=== PATIENT | female | born 1975 | race African-American/Black ===

== ENCOUNTER 2022-02-10 11:04 | Emergency (ER) | payer BC, OTHER ==
[2022-02-10 12:34] LABS: #Basophils 0.1 10x3/uL (0.0-0.2); #Eosinphils 0.1 10x3/uL (0.0-0.5); #Monocytes 0.5 10x3/uL (0.0-1.1); #Neutrophils 4.8 10x3/uL (1.5-8.4); %Basophils 0.7 % (0.0-2.0); %Eosinophils 1.9 % (0.0-6.0); %Neutrophils 72.1 % (40.0-75.0); Hemoglobin 9.9 g/dL (12.0-15.5); Mean Corpuscular HGB CONC 33.1 g/dL (32.0-36.0); Mean Corpuscular Hemoglobin 26.8 pg (27.0-33.0); Mean Platelet Volume 10.4 fl (7.4-10.4); Platelet Count 370 10x3/uL (150-450); RBC Distribution Width 14.6 % (11.5-14.5); Red Blood Cell (RBC) Count 3.69 10x6/uL (3.90-5.03); White Blood Cell (WBC) Count 6.7 10x3/uL (3.5-10.5)
[2022-02-10 12:43] LABS: ALT (SGPT) 23 U/L (8-55); AST (SGOT) 6 U/L (5-34); Albumin 3.5 g/dL (3.5-5.0); Alkaline Phosphatase 149 U/L (40-110); Anion Gap 16 mmol/L (10-20); BUN (Urea Nitrogen) 28 mg/dL (7.0-18.7); Bilirubin, Total 0.5 mg/dL (0.2-1.2); Calc. Creatinine Clearance 0 mL/min (70-130); Calcium 9.3 mg/dL (7.8-10.44); Carbon Dioxide 24 mmol/L (22-29); Chloride 101 mmol/L (98-107); Estimated GFR 45; Lipase 8 U/L (8-78); Protein, Total 7.5 g/dL (6.0-8.3); Sodium 137 mmol/L (136-145)
[2022-02-10 12:48] LABS: SARS-CoV-2 NAA Rapid Test Not Detected (NotDetected)
[2022-02-10 12:48] LABS: Magnesium 1.6 mg/dL (1.6-2.6); Phosphorus 4.3 mg/dL (2.3-4.7)
[2022-02-10] MEDS ORDERED: diphenhydrAMINE 50 MG/ML VIAL ONE (12:51)
[2022-02-10] MEDS ORDERED: methylPREDNISolone Sod Succ 40 MG VIAL ONE (12:51)
[2022-02-10] MEDS ORDERED: Famotidine/PF 20 mg/2ml Vial ONE (12:51)
[2022-02-10 12:52] LABS: BHCG - Serum Negative (NEGATIVE); Pregs Control Background? CLEAR/WHITE (CLR/WHITE); Pregs Control Bar Appear? YES (CONTROL BAR)
[2022-02-10 12:54] LABS: Glucose 648 mg/dL (70-105)
[2022-02-10] MEDS ORDERED: Morphine 2 MG/ML VIAL ONE (13:12)
[2022-02-10] MEDS ORDERED: Cefepime 2 GM VIAL ONE (13:13)
[2022-02-10 13:48] LABS: Actual Bicarbonate (HCO3v) 28 mEq/L (22-28); Base Excess 4.5 mEq/L (-2.0 to +3.0); Chloride (VBG) 101 mmol/L (98-106); Hemoglobin (Hb) 11.6 g/dL (11.7-16.0); Potassium (VBG) 4.15 mmol/L (3.70-5.30); Puncture Site Other Site; Sodium 138.1 mmol/L (133-146); Temperature 36.9 C
[2022-02-10] MEDS ORDERED: Insulin Regular 300 UNITS/3 ML VIAL ONE (14:46)
[2022-02-10] MEDS ORDERED: HYDROcodone/Acetaminophen 5/325 mg Tablet ONE (16:25)
[2022-02-10] MEDS ORDERED: Promethazine HCl 25 MG/ML VIAL ONE (16:25)
[2022-02-10 17:59] LABS: Bilirubin Neg (Negative); Blood, Urine 50 (Negative); Clarity Slightly Cloudy (Clear); Glucose, Urine (Dipstick) >=1000 mg/dL (Negative); Ketone, Urine Negative (Negative); Leukocyte 500 (Negative); Nitrite Negative (Negative); Protein, Urine (Dipstick) 500 mg/dl (Neg-Trace); Urobilinogen Normal mg/dL (Less than 2)
[2022-02-10 18:07] LABS: WBC/HPF Greater Than 50 HPF (0-3)
[2022-02-10 18:08] LABS: Bacteria/HPF Rare-Few HPF (None Seen); Squamous Epithelial 0-3 HPF (0-3); Yeast-Budding Rare HPF (None Seen)
[2022-02-10 18:09] LABS: Yeast-Hyphae 1+ HPF (None Seen)
== END 2022-02-10 17:39 | disposition home or self-care (01) ==
LOC: CSHERS 11:04
DX: E11.65 Type 2 diabetes mellitus with hyperglycemia (principal); N17.9 Acute kidney failure, unspecified; D64.9 Anemia, unspecified; M79.672 Pain in left foot; I10 Essential (primary) hypertension; F17.210 Nicotine dependence, cigarettes, uncomplicated; Z20.822 Contact with and (suspected) exposure to COVID-19
CPT/HCPCS: 36415; 36416; 36600; 71045; 74177; 80053; 81003; 81015; 82010; 82805; 83605; 83690; 83735; 83880; 84100; 84484; 84703; 85025; 85652; 86140; 87040; 87086; 93005; 94760; 99283; J0692; J1200; J1815; J2270; J2550; J2920; J3370; S0028

== ENCOUNTER 2022-03-02 13:28 | Emergency (ER) | payer BC, OTHER ==
[2022-03-02 14:45] LABS: SARS-CoV-2 NAA Rapid Test DETECTED (NotDetected)
== END 2022-03-02 16:09 | disposition left against medical advice (07) ==
LOC: CSHERS 13:28
DX: U07.1 COVID-19 (principal); Z53.21 Procedure and treatment not carried out due to patient leaving prior to being seen by health care provider

== ENCOUNTER 2022-03-03 12:26 | Emergency (ER) | payer BC, OTHER | END 2022-03-03 13:27 | disposition home or self-care (01) | LOC: CSHERS 12:26 | DX: U07.1 COVID-19 (principal); E11.9 Type 2 diabetes mellitus without complications | CPT/HCPCS: 36416; 99281 ==

== ENCOUNTER 2022-10-25 09:33 | Inpatient (IN) | payer OTHER ==
[2022-10-25 10:25] LABS: Actual Bicarbonate (HCO3v) 19.3 mEq/L (22-28); Base Excess -6.9 mEq/L (-2 - +2); Calcium, Ionized (venous) 1.13 mmol/L (1.16-1.32); Chloride (VBG) 103 mmol/L (98-106); Hematocrit-VBG 37 % (36.0-47.0); Hemoglobin (Hb) 12.6 g/dL (11.7-16.0); Potassium (VBG) 4.94 mmol/L (3.70-5.30); Puncture Site Other Site; RapidComm Collect By lab; Sodium 134.1 mmol/L (133-146); pH (venous) 7.291 (7.32-7.43)
[2022-10-25] MEDS ORDERED: Ketorolac Tromethamine 30 MG/ML VIAL ONE (10:40)
[2022-10-25] MEDS ORDERED: Promethazine 25 MG TAB ONE (10:40)
[2022-10-25 10:44] LABS: #Basophils 0.1 10x3/uL (0.0-0.2); #Eosinphils 0.1 10x3/uL (0.0-0.5); #Monocytes 0.3 10x3/uL (0.0-1.1); #Neutrophils 5.8 10x3/uL (1.5-8.4); %Basophils 0.7 % (0.0-2.0); %Eosinophils 1.7 % (0.0-6.0); %Lymphocytes 12.4 % (18.0-47.0); %Monocytes 4.5 % (0.0-10.0); %Neutrophils 79.9 % (40.0-75.0); Hematocrit 36.5 % (34.9-44.5); Hemoglobin 11.6 g/dL (12.0-15.5); Mean Corpuscular HGB CONC 31.8 g/dL (32.0-36.0); Mean Corpuscular Volume 81.8 fl (81.6-98.3); Mean Platelet Volume 10.1 fl (7.4-10.4); Platelet Count 448 10x3/uL (150-450); RBC Distribution Width 15.2 % (11.5-14.5); Red Blood Cell (RBC) Count 4.46 10x6/uL (3.90-5.03); White Blood Cell (WBC) Count 7.2 10x3/uL (3.5-10.5)
[2022-10-25 10:50] LABS: ALT (SGPT) Less than 7 U/L (8-55); AST (SGOT) 7 U/L (5-34); Alkaline Phosphatase 136 U/L (40-110); Anion Gap 24 mmol/L (10-20); BUN (Urea Nitrogen) 72 mg/dL (7.0-18.7); Bilirubin, Total 0.3 mg/dL (0.2-1.2); Calc. Creatinine Clearance 0 mL/min (70-130); Calcium 9.9 mg/dL (7.8-10.44); Carbon Dioxide 13 mmol/L (22-29); Estimated GFR 15; Globulin 4.5 g/dL (2.4-3.5); Glucose 296 mg/dL (70-105); Lipase 43 U/L (8-78); Magnesium 2.4 mg/dL (1.6-2.6); Protein, Total 8.5 g/dL (6.0-8.3)
[2022-10-25 10:56] LABS: Chloride 102 mmol/L (98-107); Potassium 4.9 mmol/L (3.5-5.1); Sodium 134 mmol/L (136-145)
[2022-10-25] MEDS ORDERED: Promethazine HCl 12.5 MG in Sodium Chloride 0.9% 50 ML IVPB SCH (11:00)
[2022-10-25] MEDS ORDERED: Morphine 4 MG/ML VIAL ONE (11:09)
[2022-10-25 11:26] LABS: Phosphorus 5.5 mg/dL (2.3-4.7)
[2022-10-25] MEDS ORDERED: NS 0.9% w/ 20 MEQ KCL 1,000 ML IV PRN ×2 (12:01)
[2022-10-25] MEDS ORDERED: Electrolyte Replacement Protocol 1 EACH IVPB PRN (12:01)
[2022-10-25] MEDS ORDERED: Sodium Chloride 0.9% 1,000 ML IV PRN ×4 (12:01)
[2022-10-25] MEDS ORDERED: Dextrose 5 %-0.45 % NaCl 1,000 ML IV PRN (12:01)
[2022-10-25] MEDS ORDERED: Insulin Regular 300 UNITS/3 ML VIAL ONE (12:08)
[2022-10-25] MEDS ORDERED: INSULIN REGULAR IN 0.9 % NACL 100 UNITS/100 ML BAG ONE (12:10)
[2022-10-25] MEDS ORDERED: HUMULIN R 100 UNITS in Sodium Chloride 0.9% 99 ML IVPB SCH (12:15)
[2022-10-25 13:26] VITALS: BMI 19.7
[2022-10-25] MEDS: Morphine 2 MG/ML VIAL SLOW IVP PRN ×3 (13:56→22:16)
[2022-10-25] MEDS: cefTRIAXone\\ROCEPHIN 1 GM in Sodium Chloride 0.9% 100 ML IVPB SCH (14:23)
[2022-10-25] MEDS: Dextrose 50% Abboject 50 ML SYRINGE SLOW IVP PRN ×4 (14:30→23:43)
[2022-10-25] MEDS: D5 1/2 NS w/20 mEq KCL 1,000 ML IV PRN ×3 (14:32→23:12)
[2022-10-25] MEDS: Promethazine HCl 12.5 MG in Sodium Chloride 0.9% 50 ML IVPB PRN ×2 (15:20→20:26)
[2022-10-25] MEDS ORDERED: Pantoprazole 40 MG VIAL IVP SCH (16:15)
[2022-10-25 16:50] LABS: Troponin I Less than 0.010 ng/mL (< 0.028)
[2022-10-25 17:30] LABS: Anion Gap 19 mmol/L (10-20); BUN (Urea Nitrogen) 69 mg/dL (7.0-18.7); Calc. Creatinine Clearance 20 mL/min (70-130); Calcium 8.2 mg/dL (7.8-10.44); Carbon Dioxide 12 mmol/L (22-29); Chloride 110 mmol/L (98-107); Estimated GFR 18; Glucose 224 mg/dL (70-105); Potassium 4.7 mmol/L (3.5-5.1); Sodium 136 mmol/L (136-145)
[2022-10-25] MEDS ORDERED: INSULIN REGULAR IN 0.9 % NACL 100 UNITS in Premix Bag 1 BAG IVPB SCH (19:00)
[2022-10-25 19:41] LABS: Anion Gap 18 mmol/L (10-20); BUN (Urea Nitrogen) 65 mg/dL (7.0-18.7); Calc. Creatinine Clearance 21 mL/min (70-130); Calcium 7.9 mg/dL (7.8-10.44); Carbon Dioxide 13 mmol/L (22-29); Chloride 110 mmol/L (98-107); Estimated GFR 18; Glucose 154 mg/dL (70-105); Potassium 4.5 mmol/L (3.5-5.1); Sodium 136 mmol/L (136-145)
[2022-10-26 00:43] LABS: Anion Gap 16 mmol/L (10-20); BUN (Urea Nitrogen) 63 mg/dL (7.0-18.7); Calc. Creatinine Clearance 23 mL/min (70-130); Calcium 8.1 mg/dL (7.8-10.44); Carbon Dioxide 14 mmol/L (22-29); Chloride 110 mmol/L (98-107); Estimated GFR 20; Glucose 158 mg/dL (70-105); Potassium 4.7 mmol/L (3.5-5.1); Sodium 135 mmol/L (136-145)
[2022-10-26] MEDS: Dextrose 50% Abboject 50 ML SYRINGE SLOW IVP PRN (01:28)
[2022-10-26] MEDS: Morphine 2 MG/ML VIAL SLOW IVP PRN ×4 (02:03→21:00)
[2022-10-26] MEDS: Promethazine HCl 12.5 MG in Sodium Chloride 0.9% 50 ML IVPB PRN ×3 (04:23→21:46)
[2022-10-26 04:52] LABS: Anion Gap 16 mmol/L (10-20); BUN (Urea Nitrogen) 61 mg/dL (7.0-18.7); Calc. Creatinine Clearance 23 mL/min (70-130); Calcium 8.3 mg/dL (7.8-10.44); Carbon Dioxide 14 mmol/L (22-29); Chloride 109 mmol/L (98-107); Estimated GFR 21; Glucose 149 mg/dL (70-105); Sodium 134 mmol/L (136-145)
[2022-10-26] MEDS ORDERED: Insulin Regular 300 UNITS/3 ML VIAL SC PRN ×2 (08:50)
[2022-10-26] MEDS ORDERED: Dextrose 50% Abboject 50 ML SYRINGE SLOW IVP PRN (08:50)
[2022-10-26] MEDS ORDERED: Dextrose 5% in Water 1,000 ML IV PRN (08:50)
[2022-10-26] MEDS ORDERED: Glucagon 1 MG/ML KIT IM PRN (08:50)
[2022-10-26] MEDS ORDERED: Calcium Carbonate 500 MG ChewTAB PO PRN (08:54)
[2022-10-26] MEDS: Lantus 1000 UNITS/10 ML VIAL SC SCH (09:31)
[2022-10-26] MEDS: Pantoprazole 40 MG VIAL IVP SCH ×2 (09:32→19:22)
[2022-10-26] MEDS: Polyethylene Glycol 3350 17 GM Packet PO SCH ×2 (09:33→20:51)
[2022-10-26] MEDS: Senokot S 8.6-50 MG TAB PO SCH ×2 (09:33→20:51)
[2022-10-26] MEDS: Sodium Chloride 0.45% 1,000 ML IV SCH ×2 (09:35→17:38)
[2022-10-26 10:11] LABS: Bilirubin Neg (Negative); Blood, Urine 150 (Negative); Clarity Cloudy (Clear); Glucose, Urine (Dipstick) Normal (Negative); Ketone, Urine Negative (Negative); Leukocyte 500 (Negative); Nitrite Negative (Negative); Protein, Urine (Dipstick) 30 mg/dl (Neg-Trace); Urobilinogen Normal mg/dL (Less than 2)
[2022-10-26 10:20] LABS: Bacteria/HPF 2+ HPF (None Seen); Squamous Epithelial 0-3 HPF (0-3); WBC/HPF 21-50 HPF (0-3)
[2022-10-26] MEDS ORDERED: Acetaminophen/Codeine 30-300mg Tablet PO PRN (12:48)
[2022-10-26] MEDS ORDERED: Morphine 2 MG/ML VIAL SLOW IVP PRN (14:36)
[2022-10-26] MEDS: cefTRIAXone\\ROCEPHIN 1 GM in Sodium Chloride 0.9% 100 ML IVPB SCH (14:40)
[2022-10-26] MEDS: Sodium Bicarbonate Tab 325 MG TAB PO SCH ×2 (14:45→20:51)
[2022-10-26] MEDS ORDERED: Morphine 2 MG/ML VIAL SLOW IVP SCH ×2 (17:00→22:15)
[2022-10-26] MEDS ORDERED: Labetalol HCl 100 MG/20 ML VIAL SLOW IVP PRN (17:27)
[2022-10-27] MEDS: Sodium Chloride 0.45% 1,000 ML IV SCH ×3 (01:35→17:40)
[2022-10-27] MEDS: Morphine 2 MG/ML VIAL SLOW IVP PRN ×6 (02:00→22:03)
[2022-10-27] MEDS: Promethazine HCl 12.5 MG in Sodium Chloride 0.9% 50 ML IVPB PRN ×4 (03:47→22:23)
[2022-10-27 04:29] LABS: #Basophils 0.1 10x3/uL (0.0-0.2); #Eosinphils 0.1 10x3/uL (0.0-0.5); #Monocytes 0.5 10x3/uL (0.0-1.1); #Neutrophils 3.9 10x3/uL (1.5-8.4); %Basophils 0.9 % (0.0-2.0); %Eosinophils 2.5 % (0.0-6.0); %Lymphocytes 18.3 % (18.0-47.0); %Monocytes 8.4 % (0.0-10.0); %Neutrophils 69.4 % (40.0-75.0); Hematocrit 27.9 % (34.9-44.5); Hemoglobin 8.7 g/dL (12.0-15.5); Mean Corpuscular HGB CONC 31.2 g/dL (32.0-36.0); Mean Corpuscular Hemoglobin 26.3 pg (27.0-33.0); Mean Corpuscular Volume 84.3 fl (81.6-98.3); Mean Platelet Volume 9.8 fl (7.4-10.4); Platelet Count 356 10x3/uL (150-450); RBC Distribution Width 15.3 % (11.5-14.5); Red Blood Cell (RBC) Count 3.31 10x6/uL (3.90-5.03); White Blood Cell (WBC) Count 5.6 10x3/uL (3.5-10.5)
[2022-10-27 04:54] LABS: Anion Gap 13 mmol/L (10-20); BUN (Urea Nitrogen) 46 mg/dL (7.0-18.7); Calc. Creatinine Clearance 38 mL/min (70-130); Calcium 8.4 mg/dL (7.8-10.44); Carbon Dioxide 16 mmol/L (22-29); Chloride 110 mmol/L (98-107); Estimated GFR 39; Glucose 104 mg/dL (70-105); Potassium 4.2 mmol/L (3.5-5.1); Sodium 135 mmol/L (136-145)
[2022-10-27] MEDS: Pantoprazole 40 MG VIAL IVP SCH ×2 (08:23→22:06)
[2022-10-27] MEDS: Polyethylene Glycol 3350 17 GM Packet PO SCH ×2 (08:55→22:06)
[2022-10-27] MEDS: Senokot S 8.6-50 MG TAB PO SCH ×2 (08:55→23:28)
[2022-10-27] MEDS: Sodium Bicarbonate Tab 325 MG TAB PO SCH ×3 (08:55→22:05)
[2022-10-27] MEDS: Lantus 1000 UNITS/10 ML VIAL SC SCH (10:56)
[2022-10-27] MEDS: cefTRIAXone\\ROCEPHIN 1 GM in Sodium Chloride 0.9% 100 ML IVPB SCH (13:21)
[2022-10-28] MEDS: Sodium Chloride 0.45% 1,000 ML IV SCH (01:38)
[2022-10-28] MEDS: Morphine 2 MG/ML VIAL SLOW IVP PRN (02:13)
[2022-10-28 05:28] LABS: #Basophils 0.1 10x3/uL (0.0-0.2); #Eosinphils 0.1 10x3/uL (0.0-0.5); #Monocytes 0.5 10x3/uL (0.0-1.1); %Eosinophils 2.8 % (0.0-6.0); %Lymphocytes 25.7 % (18.0-47.0); %Monocytes 10.4 % (0.0-10.0); %Neutrophils 59.5 % (40.0-75.0); Hematocrit 27.7 % (34.9-44.5); Hemoglobin 8.9 g/dL (12.0-15.5); Mean Corpuscular HGB CONC 32.1 g/dL (32.0-36.0); Mean Corpuscular Hemoglobin 26.6 pg (27.0-33.0); Mean Corpuscular Volume 82.9 fl (81.6-98.3); Mean Platelet Volume 10.1 fl (7.4-10.4); Platelet Count 342 10x3/uL (150-450); RBC Distribution Width 15.2 % (11.5-14.5); Red Blood Cell (RBC) Count 3.34 10x6/uL (3.90-5.03)
[2022-10-28 05:42] LABS: Anion Gap 16 mmol/L (10-20); BUN (Urea Nitrogen) 34 mg/dL (7.0-18.7); Calc. Creatinine Clearance 49 mL/min (70-130); Calcium 8.8 mg/dL (7.8-10.44); Carbon Dioxide 18 mmol/L (22-29); Chloride 110 mmol/L (98-107); Estimated GFR 47; Glucose 70 mg/dL (70-105); Potassium 4.1 mmol/L (3.5-5.1); Sodium 140 mmol/L (136-145)
[2022-10-28] MEDS: Promethazine HCl 12.5 MG in Sodium Chloride 0.9% 50 ML IVPB PRN ×2 (08:24→15:54)
[2022-10-28] MEDS ORDERED: Sodium Chloride 0.45% 1,000 ML IV SCH (08:47)
[2022-10-28] MEDS ORDERED: Morphine 2 MG/ML VIAL SLOW IVP PRN (10:59)
[2022-10-28] MEDS: Pantoprazole 40 MG VIAL IVP SCH (11:07)
[2022-10-28] MEDS: Sodium Bicarbonate Tab 325 MG TAB PO SCH ×2 (11:08→17:01)
[2022-10-28] MEDS: Polyethylene Glycol 3350 17 GM Packet PO SCH (11:08)
[2022-10-28] MEDS: Senokot S 8.6-50 MG TAB PO SCH (11:09)
[2022-10-28 12:35] VITALS: BP 101/62; TEMP 98.5
[2022-10-28] MEDS: cefTRIAXone\\ROCEPHIN 1 GM in Sodium Chloride 0.9% 100 ML IVPB SCH (13:41)
== END 2022-10-28 18:10 | disposition left against medical advice (07) | DRG 638 ==
LOC: CSHERS 09:33 → CSHICU 13:08 → CSHTELE 10-27 15:59
PROVIDERS: ADMIT Internal Medicine; ATTEND Internal Medicine
PROC: 4A043R1 Measurement of Venous Saturation, Peripheral, Percutaneous Approach (ICD-10-PCS; principal; 2022-10-25)
DX: E11.10 Type 2 diabetes mellitus with ketoacidosis without coma (principal); N17.9 Acute kidney failure, unspecified; N39.0 Urinary tract infection, site not specified; E11.43 Type 2 diabetes mellitus with diabetic autonomic (poly)neuropathy; N18.9 Chronic kidney disease, unspecified; I12.9 Hypertensive chronic kidney disease with stage 1 through stage 4 chronic kidney disease, or unspecified chronic kidney disease; F17.210 Nicotine dependence, cigarettes, uncomplicated; G89.4 Chronic pain syndrome; K20.90 Esophagitis, unspecified without bleeding; K59.09 Other constipation; D63.1 Anemia in chronic kidney disease; K31.84 Gastroparesis; E86.0 Dehydration; Z88.8 Allergy status to other drugs, medicaments and biological substances; Z79.899 Other long term (current) drug therapy; Z98.51 Tubal ligation status; Z89.511 Acquired absence of right leg below knee; Z91.041 Radiographic dye allergy status; Z90.710 Acquired absence of both cervix and uterus; E11.22 Type 2 diabetes mellitus with diabetic chronic kidney disease
CPT/HCPCS: 36415; 36416; 71045; 74176; 80048; 80053; 81001; 82010; 82805; 83605; 83690; 83735; 84100; 84484; 85025; 85379; 87086; 93005; 93010; C9113; J0696; J1815; J1885; J2270; J2272; J2550; J3480; J3490; J7042; J7050; J7999; Q0169

== ENCOUNTER 2022-11-21 12:04 | Emergency (ER) | payer OTHER ==
[2022-11-21 16:13] LABS: #Basophils 0.1 10x3/uL (0.0-0.2); #Eosinphils 0.2 10x3/uL (0.0-0.5); #Monocytes 0.5 10x3/uL (0.0-1.1); #Neutrophils 4.4 10x3/uL (1.5-8.4); %Basophils 0.8 % (0.0-2.0); %Eosinophils 2.5 % (0.0-6.0); %Monocytes 7.6 % (0.0-10.0); %Neutrophils 69.6 % (40.0-75.0); Hematocrit 31.5 % (34.9-44.5); Hemoglobin 10.1 g/dL (12.0-15.5); Mean Corpuscular HGB CONC 32.1 g/dL (32.0-36.0); Mean Corpuscular Hemoglobin 26.4 pg (27.0-33.0); Mean Corpuscular Volume 82.5 fl (81.6-98.3); Mean Platelet Volume 9.8 fl (7.4-10.4); Platelet Count 404 10x3/uL (150-450); RBC Distribution Width 15.4 % (11.5-14.5); Red Blood Cell (RBC) Count 3.82 10x6/uL (3.90-5.03); White Blood Cell (WBC) Count 6.3 10x3/uL (3.5-10.5)
[2022-11-21 16:34] LABS: ALT (SGPT) 9 U/L (8-55); AST (SGOT) 7 U/L (5-34); Albumin 4.4 g/dL (3.5-5.0); Alkaline Phosphatase 98 U/L (40-110); Anion Gap 23 mmol/L (10-20); BUN (Urea Nitrogen) 111 mg/dL (7.0-18.7); Bilirubin, Total 0.3 mg/dL (0.2-1.2); Calc. Creatinine Clearance 0 mL/min (70-130); Calcium 8.7 mg/dL (7.8-10.44); Carbon Dioxide 10 mmol/L (22-29); Chloride 108 mmol/L (98-107); Estimated GFR 13; Glucose 251 mg/dL (70-105); Potassium 5.5 mmol/L (3.5-5.1); Protein, Total 8.4 g/dL (6.0-8.3); Sodium 135 mmol/L (136-145)
[2022-11-21 16:40] LABS: Troponin I Less than 0.010 ng/mL (< 0.028)
[2022-11-21] MEDS ORDERED: Morphine 4 MG/ML VIAL ONE (16:42)
[2022-11-21 17:01] LABS: BHCG - Serum Negative (NEGATIVE); Pregs Control Background? CLEAR/WHITE (CLR/WHITE); Pregs Control Bar Appear? YES (CONTROL BAR)
[2022-11-21 17:05] LABS: SARS-CoV-2 NAA Rapid Test Not Detected (NotDetected)
[2022-11-21] MEDS ORDERED: Calcium Gluc 4.6 MEQ/10 ML (100 MG/ML) ONE (17:07)
[2022-11-21] MEDS ORDERED: Insulin Regular 300 UNITS/3 ML VIAL ONE (17:07)
== END 2022-11-21 17:49 | disposition left against medical advice (07) ==
LOC: CSHERS 12:04
DX: R07.89 Other chest pain (principal); N17.9 Acute kidney failure, unspecified; E87.5 Hyperkalemia; R53.81 Other malaise; I10 Essential (primary) hypertension; E11.9 Type 2 diabetes mellitus without complications; F17.210 Nicotine dependence, cigarettes, uncomplicated; Z20.822 Contact with and (suspected) exposure to COVID-19; Z79.4 Long term (current) use of insulin
CPT/HCPCS: 36416; 71045; 80053; 82010; 84484; 84703; 85025; 93005; 96361; 96374; 96375; J0612; J1815; J2270

== ENCOUNTER 2022-11-22 11:05 | Inpatient (IN) | payer OTHER ==
[2022-11-22] MEDS ORDERED: HYDROcodone/Acetaminophen 5/325 mg Tablet ONE (12:37)
[2022-11-22 12:43] LABS: #Eosinphils 0.1 10x3/uL (0.0-0.5); #Monocytes 0.5 10x3/uL (0.0-1.1); #Neutrophils 4.2 10x3/uL (1.5-8.4); %Basophils 0.7 % (0.0-2.0); %Eosinophils 2.1 % (0.0-6.0); %Lymphocytes 16.4 % (18.0-47.0); %Monocytes 8.6 % (0.0-10.0); %Neutrophils 71.5 % (40.0-75.0); Hematocrit 28.4 % (34.9-44.5); Hemoglobin 9.1 g/dL (12.0-15.5); Mean Corpuscular Hemoglobin 26.5 pg (27.0-33.0); Mean Corpuscular Volume 82.6 fl (81.6-98.3); Platelet Count 366 10x3/uL (150-450); RBC Distribution Width 15.3 % (11.5-14.5); Red Blood Cell (RBC) Count 3.44 10x6/uL (3.90-5.03); White Blood Cell (WBC) Count 5.8 10x3/uL (3.5-10.5)
[2022-11-22] MEDS ORDERED: Morphine 4 MG/ML VIAL ONE (12:55)
[2022-11-22 13:06] LABS: Phosphorus 6.3 mg/dL (2.3-4.7)
[2022-11-22 13:11] LABS: ALT (SGPT) 7 U/L (8-55); AST (SGOT) 6 U/L (5-34); Albumin 3.7 g/dL (3.5-5.0); Alkaline Phosphatase 88 U/L (40-110); Anion Gap 17 mmol/L (10-20); BUN (Urea Nitrogen) 91 mg/dL (7.0-18.7); Bilirubin, Total 0.2 mg/dL (0.2-1.2); Calc. Creatinine Clearance 0 mL/min (70-130); Calcium 8.6 mg/dL (7.8-10.44); Carbon Dioxide 10 mmol/L (22-29); Chloride 112 mmol/L (98-107); Estimated GFR 18; Globulin 3.7 g/dL (2.4-3.5); Glucose 395 mg/dL (70-105); Magnesium 2.3 mg/dL (1.6-2.6); Potassium 5.3 mmol/L (3.5-5.1); Protein, Total 7.4 g/dL (6.0-8.3); Sodium 134 mmol/L (136-145)
[2022-11-22] MEDS ORDERED: Sodium Bicarb 50 MEQ/50 ML Abboject 8.4% SYRINGE ONE (13:14)
[2022-11-22 13:17] LABS: Troponin I Less than 0.010 ng/mL (< 0.028)
[2022-11-22] MEDS ORDERED: Nitroglycerin 0.4 MG TAB (25 Tab Bottle) SL PRN (13:33)
[2022-11-22] MEDS ORDERED: Dextrose 5% in Water 1,000 ML IV PRN (13:38)
[2022-11-22] MEDS ORDERED: Dextrose 50% Abboject 50 ML SYRINGE SLOW IVP PRN (13:38)
[2022-11-22] MEDS ORDERED: HumaLOG 300 UNITS/3 ML VIAL SC PRN ×2 (13:38)
[2022-11-22] MEDS ORDERED: Glucagon 1 MG/ML KIT IM PRN (13:38)
[2022-11-22] MEDS ORDERED: Ondansetron ODT 4 MG TAB PO PRN (14:12)
[2022-11-22] MEDS ORDERED: Ondansetron PF 4 MG/2 ML Vial IVP PRN (14:12)
[2022-11-22 14:54] VITALS: BMI 22.4
[2022-11-22] MEDS: Sodium Bicarbonate 50 MEQ, Admixture Fee 1 EACH in Sodium Chloride 0.45% 1,000 ML IV SCH (15:00)
[2022-11-22] MEDS ORDERED: Promethazine HCl 25 MG/ML VIAL IM PRN ×2 (15:07→15:09)
[2022-11-22] MEDS ORDERED: traMADol HCl 50 MG TAB PO PRN (16:37)
[2022-11-22] MEDS: Nicotine 14 MG PATCH TD SCH (16:40)
[2022-11-22] MEDS: Morphine 2 MG/ML VIAL SLOW IVP PRN (18:43)
[2022-11-22 19:18] LABS: Troponin I Less than 0.010 ng/mL (< 0.028)
[2022-11-22 21:53] LABS: Troponin I Less than 0.010 ng/mL (< 0.028)
[2022-11-23 03:59] LABS: #Eosinphils 0.2 10x3/uL (0.0-0.5); #Monocytes 0.5 10x3/uL (0.0-1.1); #Neutrophils 3.2 10x3/uL (1.5-8.4); %Basophils 0.8 % (0.0-2.0); %Eosinophils 3.2 % (0.0-6.0); %Lymphocytes 25.4 % (18.0-47.0); %Monocytes 9.7 % (0.0-10.0); %Neutrophils 60.1 % (40.0-75.0); Hematocrit 26.6 % (34.9-44.5); Hemoglobin 8.5 g/dL (12.0-15.5); Mean Corpuscular Hemoglobin 26.1 pg (27.0-33.0); Mean Corpuscular Volume 81.6 fl (81.6-98.3); Mean Platelet Volume 10.1 fl (7.4-10.4); Platelet Count 342 10x3/uL (150-450); RBC Distribution Width 15.1 % (11.5-14.5); Red Blood Cell (RBC) Count 3.26 10x6/uL (3.90-5.03); White Blood Cell (WBC) Count 5.3 10x3/uL (3.5-10.5)
[2022-11-23 04:07] LABS: Anion Gap 17 mmol/L (10-20); BUN (Urea Nitrogen) 77 mg/dL (7.0-18.7); Calc. Creatinine Clearance 35 mL/min (70-130); Calcium 8.5 mg/dL (7.8-10.44); Carbon Dioxide 15 mmol/L (22-29); Chloride 113 mmol/L (98-107); Estimated GFR 30; Glucose 81 mg/dL (70-105); Potassium 4.2 mmol/L (3.5-5.1); Sodium 141 mmol/L (136-145)
[2022-11-23] MEDS: Morphine 2 MG/ML VIAL SLOW IVP PRN ×5 (04:32→20:36)
[2022-11-23] MEDS: Sodium Bicarbonate 50 MEQ, Admixture Fee 1 EACH in Sodium Chloride 0.45% 1,000 ML IV SCH ×2 (04:32→21:56)
[2022-11-23] MEDS: Aspirin Chewable 81 MG TAB PO SCH (09:26)
[2022-11-23] MEDS: Carvedilol 12.5 MG TAB PO SCH ×3 (09:26→20:47)
[2022-11-23] MEDS ORDERED: traMADol HCl 50 MG TAB PO PRN (13:08)
[2022-11-23] MEDS ORDERED: Pantoprazole 40 MG VIAL IVP SCH (14:00)
[2022-11-23] MEDS: Nicotine 14 MG PATCH TD SCH (15:27)
[2022-11-23 16:02] LABS: Bilirubin Neg (Negative); Blood, Urine 10 (Negative); Clarity Clear (Clear); Glucose, Urine (Dipstick) Normal (Negative); Ketone, Urine Negative (Negative); Leukocyte 500 (Negative); Nitrite Negative (Negative); Protein, Urine (Dipstick) 15 mg/dl (Neg-Trace); Specific Gravity, Urine 1.015 (1.005-1.030); Urobilinogen Normal mg/dL (Less than 2)
[2022-11-23 16:10] LABS: Amphetamine Not Detected (NotDetected); Barbiturates Screen Not Detected (NotDetected); Benzodiazepine Screen Not Detected (NotDetected); Cocaine Metabolite Screen Not Detected (NotDetected); Methadone Not Detected (NotDetected); Methamphetamine Not Detected (NotDetected); Opiate Screen Detected (NotDetected); Oxycodone Screen Not Detected (NotDetected); Phencyclidine (PCP) Not Detected (NotDetected); THC/Cannabinoid Screen Not Detected (NotDetected); Tricyclic Screen Not Detected (NotDetected)
[2022-11-23 16:15] LABS: Bacteria/HPF Rare-Few HPF (None Seen); RBC/HPF 0-3 HPF (0-3); Squamous Epithelial 0-3 HPF (0-3)
[2022-11-23] MEDS: diphenhydrAMINE 25 MG CAP PO PRN (20:37)
[2022-11-23] MEDS ORDERED: diphenhydrAMINE 50 MG/ML VIAL IVP SCH (21:00)
[2022-11-24] MEDS: Morphine 2 MG/ML VIAL SLOW IVP PRN ×5 (00:48→20:47)
[2022-11-24] MEDS ORDERED: HumaLOG 300 UNITS/3 ML VIAL SC PRN ×2 (01:00)
[2022-11-24 05:00] LABS: #Eosinphils 0.2 10x3/uL (0.0-0.5); #Monocytes 0.5 10x3/uL (0.0-1.1); #Neutrophils 3.4 10x3/uL (1.5-8.4); %Basophils 0.6 % (0.0-2.0); %Eosinophils 3.5 % (0.0-6.0); %Lymphocytes 19.7 % (18.0-47.0); %Monocytes 9.4 % (0.0-10.0); %Neutrophils 66.2 % (40.0-75.0); Hematocrit 26.6 % (34.9-44.5); Hemoglobin 8.3 g/dL (12.0-15.5); Mean Corpuscular HGB CONC 31.2 g/dL (32.0-36.0); Mean Corpuscular Hemoglobin 25.9 pg (27.0-33.0); Mean Corpuscular Volume 82.9 fl (81.6-98.3); Mean Platelet Volume 10.2 fl (7.4-10.4); Platelet Count 333 10x3/uL (150-450); Red Blood Cell (RBC) Count 3.21 10x6/uL (3.90-5.03); White Blood Cell (WBC) Count 5.1 10x3/uL (3.5-10.5)
[2022-11-24 05:09] LABS: Iron 35 ug/dL (50-170); Iron Binding Capacity, Total 184 mcg/dL (265-497)
[2022-11-24 05:10] LABS: Anion Gap 15 mmol/L (10-20); BUN (Urea Nitrogen) 63 mg/dL (7.0-18.7); Calc. Creatinine Clearance 38 mL/min (70-130); Calcium 8.4 mg/dL (7.8-10.44); Carbon Dioxide 17 mmol/L (22-29); Chloride 111 mmol/L (98-107); Estimated GFR 33; Glucose 266 mg/dL (70-105); Iron 33 ug/dL (50-170); Iron Binding Capacity, Total 185 mcg/dL (265-497); Potassium 4.1 mmol/L (3.5-5.1); Sodium 139 mmol/L (136-145)
[2022-11-24] MEDS: diphenhydrAMINE 25 MG CAP PO PRN (08:43)
[2022-11-24] MEDS: Carvedilol 3.125 MG TAB PO SCH ×2 (08:43→17:27)
[2022-11-24] MEDS: Aspirin Chewable 81 MG TAB PO SCH (08:44)
[2022-11-24] MEDS: Ferrous Sulfate 325 MG TAB PO SCH ×2 (08:46→17:28)
[2022-11-24] MEDS: Ascorbic Acid 500 mg Chewable Tablet PO SCH (08:46)
[2022-11-24] MEDS: Pantoprazole 40 MG VIAL IVP SCH (08:54)
[2022-11-24] MEDS: Lantus 1000 UNITS/10 ML VIAL SC SCH ×2 (08:55→21:16)
[2022-11-24] MEDS ORDERED: Iron, Sodium Ferric Gluconate 250 MG in Sodium Chloride 0.9% 250 ML 250 ML IVPB SCH (09:00)
[2022-11-24] MEDS: Sodium Bicarbonate 50 MEQ, Admixture Fee 1 EACH in Sodium Chloride 0.45% 1,000 ML IV SCH ×2 (12:04→15:16)
[2022-11-24] MEDS: Nicotine 14 MG PATCH TD SCH (15:19)
[2022-11-24] MEDS ORDERED: diphenhydrAMINE 50 MG/ML VIAL IVP SCH (22:00)
[2022-11-25] MEDS: Morphine 2 MG/ML VIAL SLOW IVP PRN ×3 (03:14→10:37)
[2022-11-25] MEDS: Sodium Bicarbonate 50 MEQ, Admixture Fee 1 EACH in Sodium Chloride 0.45% 1,000 ML IV SCH (06:16)
[2022-11-25 08:06] LABS: Anion Gap 15 mmol/L (10-20); BUN (Urea Nitrogen) 42 mg/dL (7.0-18.7); Calc. Creatinine Clearance 52 mL/min (70-130); Calcium 9.1 mg/dL (7.8-10.44); Carbon Dioxide 22 mmol/L (22-29); Chloride 111 mmol/L (98-107); Estimated GFR 48; Glucose 123 mg/dL (70-105); Potassium 3.7 mmol/L (3.5-5.1); Sodium 144 mmol/L (136-145)
[2022-11-25 08:07] LABS: #Eosinphils 0.3 10x3/uL (0.0-0.5); #Monocytes 0.6 10x3/uL (0.0-1.1); #Neutrophils 3.6 10x3/uL (1.5-8.4); %Basophils 0.7 % (0.0-2.0); %Eosinophils 5.1 % (0.0-6.0); %Lymphocytes 20.5 % (18.0-47.0); %Monocytes 9.8 % (0.0-10.0); %Neutrophils 63.2 % (40.0-75.0); Hematocrit 29.7 % (34.9-44.5); Hemoglobin 9.3 g/dL (12.0-15.5); Mean Corpuscular HGB CONC 31.3 g/dL (32.0-36.0); Mean Corpuscular Hemoglobin 26.1 pg (27.0-33.0); Mean Corpuscular Volume 83.4 fl (81.6-98.3); Mean Platelet Volume 9.7 fl (7.4-10.4); Platelet Count 354 10x3/uL (150-450); RBC Distribution Width 15.2 % (11.5-14.5); Red Blood Cell (RBC) Count 3.56 10x6/uL (3.90-5.03); White Blood Cell (WBC) Count 5.7 10x3/uL (3.5-10.5)
[2022-11-25] MEDS: Carvedilol 3.125 MG TAB PO SCH (08:38)
[2022-11-25] MEDS: Ferrous Sulfate 325 MG TAB PO SCH (08:38)
[2022-11-25] MEDS: Ascorbic Acid 500 mg Chewable Tablet PO SCH (08:39)
[2022-11-25] MEDS: Lantus 1000 UNITS/10 ML VIAL SC SCH (08:39)
[2022-11-25] MEDS: Aspirin Chewable 81 MG TAB PO SCH (08:39)
[2022-11-25] MEDS: Pantoprazole 40 MG VIAL IVP SCH (08:39)
[2022-11-25 08:43] VITALS: BP 154/70; TEMP 98.9
== END 2022-11-25 10:45 | disposition home or self-care (01) | DRG 683 ==
LOC: CSHERS 11:05 → CSHTELE 13:50
PROVIDERS: ADMIT Internal Medicine; ATTEND Internal Medicine
DX: N17.9 Acute kidney failure, unspecified (principal); E87.20 Acidosis, unspecified; N18.9 Chronic kidney disease, unspecified; E11.22 Type 2 diabetes mellitus with diabetic chronic kidney disease; E86.0 Dehydration; E87.5 Hyperkalemia; E11.65 Type 2 diabetes mellitus with hyperglycemia; D63.1 Anemia in chronic kidney disease; R13.10 Dysphagia, unspecified; I12.9 Hypertensive chronic kidney disease with stage 1 through stage 4 chronic kidney disease, or unspecified chronic kidney disease; G43.909 Migraine, unspecified, not intractable, without status migrainosus; F17.210 Nicotine dependence, cigarettes, uncomplicated; Z88.8 Allergy status to other drugs, medicaments and biological substances; Z79.899 Other long term (current) drug therapy; Z79.4 Long term (current) use of insulin; Z89.511 Acquired absence of right leg below knee; Z89.422 Acquired absence of other left toe(s); Z98.51 Tubal ligation status; Z91.041 Radiographic dye allergy status; Z90.710 Acquired absence of both cervix and uterus
CPT/HCPCS: 36415; 36416; 71045; 76770; 80048; 80053; 80306; 81001; 82728; 83540; 83550; 83735; 84100; 84484; 85025; 93005; 93306; 94760; 96365; 96375; C9113; J1200; J1815; J2270; J2272; J2550; J2916; J7050

== ENCOUNTER 2023-04-23 11:19 | Inpatient (IN) | payer OTHER ==
[2023-04-23] MEDS ORDERED: Ketorolac Tromethamine 30 MG (1 mL) VIAL ONE (11:57)
[2023-04-23 12:05] LABS: Bilirubin Neg (Negative); Blood, Urine 50 (Negative); Clarity Slightly Cloudy (Clear); Glucose, Urine (Dipstick) Normal (Negative); Ketone, Urine 5 mg/dL (Negative); Leukocyte Negative (Negative); Nitrite Negative (Negative); Protein, Urine (Dipstick) 500 mg/dl (Neg-Trace); Specific Gravity, Urine 1.015 (1.005-1.030); Urobilinogen Normal mg/dL (Less than 2)
[2023-04-23 12:26] LABS: RBC/HPF 0-3 HPF (0-3)
[2023-04-23 12:27] LABS: Bacteria/HPF 1+ HPF (None Seen); CAUTI Indications for Culture Pelvic or flank pain; WBC/HPF 0-3 HPF (0-3)
[2023-04-23 12:32] LABS: Urine Culture Reflex No No
[2023-04-23] MEDS ORDERED: hydrALAZINE 20 MG/ML VIAL ONE (12:59)
[2023-04-23] MEDS ORDERED: Morphine 2 MG/ML VIAL ONE (14:31)
[2023-04-23] MEDS ORDERED: dilTIAZem 25 MG/5 ML VIAL ONE ×2 (14:44→15:25)
[2023-04-23 15:58] LABS: #Basophils 0.1 10x3/uL (0.0-0.2); #Monocytes 0.2 10x3/uL (0.0-1.1); #Neutrophils 8.2 10x3/uL (1.5-8.4); %Basophils 0.6 % (0.0-2.0); %Eosinophils 0.1 % (0.0-6.0); %Lymphocytes 6.2 % (18.0-47.0); %Monocytes 1.9 % (0.0-10.0); %Neutrophils 90.9 % (40.0-75.0); Hematocrit 35.4 % (34.9-44.5); Hemoglobin 11.3 g/dL (12.0-15.5); Mean Corpuscular HGB CONC 31.9 g/dL (32.0-36.0); Mean Corpuscular Hemoglobin 26.6 pg (27.0-33.0); Mean Corpuscular Volume 83.3 fl (81.6-98.3); Mean Platelet Volume 9.2 fl (7.4-10.4); Platelet Count 359 10x3/uL (150-450); RBC Distribution Width 14.5 % (11.5-14.5); Red Blood Cell (RBC) Count 4.25 10x6/uL (3.90-5.03)
[2023-04-23 16:06] LABS: ALT (SGPT) 9 U/L (8-55); AST (SGOT) 10 U/L (5-34); BUN (Urea Nitrogen) 18 mg/dL (7.0-18.7); Bilirubin, Total 0.4 mg/dL (0.2-1.2); Calc. Creatinine Clearance 0 mL/min (70-130); Chloride 114 mmol/L (98-107); Lipase 4 U/L (8-78)
[2023-04-23] MEDS ORDERED: dilTIAZem 125 MG/25 ML SDV ONE (16:17)
[2023-04-23 17:17] LABS: Magnesium 1.8 mg/dL (1.6-2.6)
[2023-04-23 17:25] LABS: Troponin I 0.014 ng/mL (< 0.028)
[2023-04-23 17:26] LABS: Albumin 3.8 g/dL (3.5-5.0); Alkaline Phosphatase 114 U/L (40-110); Anion Gap 16 mmol/L (10-20); Carbon Dioxide 17 mmol/L (22-29); Estimated GFR 53; Globulin 3.8 g/dL (2.4-3.5); Glucose 234 mg/dL (70-105); Protein, Total 7.6 g/dL (6.0-8.3); Sodium 143 mmol/L (136-145)
[2023-04-23] MEDS ORDERED: Acetaminophen 325 MG TAB PO PRN (19:20)
[2023-04-23] MEDS ORDERED: Guaifenesin DM 100-10/5 ML UDCUP PO PRN (19:20)
[2023-04-23] MEDS ORDERED: Calcium Carbonate 500 MG ChewTAB PO PRN (19:20)
[2023-04-23] MEDS ORDERED: Senokot S 8.6-50 MG TAB PO PRN (19:20)
[2023-04-23] MEDS ORDERED: Dextrose 50% Abboject 50 ML SYRINGE SLOW IVP PRN (19:20)
[2023-04-23] MEDS ORDERED: dilTIAZem 125 MG in Sodium Chloride 0.9% 100 ML IVPB SCH (19:30)
[2023-04-23] MEDS ORDERED: Famotidine/PF 20 mg/2ml Vial SLOW IVP SCH (21:00)
[2023-04-23] MEDS ORDERED: Enoxaparin 80 MG (0.8 mL) SYRINGE SC SCH (21:00)
[2023-04-23 22:07] LABS: Anion Gap 17 mmol/L (10-20); BUN (Urea Nitrogen) 20 mg/dL (7.0-18.7); Calc. Creatinine Clearance 0 mL/min (70-130); Carbon Dioxide 17 mmol/L (22-29); Chloride 113 mmol/L (98-107); Estimated GFR 52; Glucose 273 mg/dL (70-105); Potassium 4.4 mmol/L (3.5-5.1); Sodium 143 mmol/L (136-145)
[2023-04-23] MEDS: Lorazepam 2 MG/ML VIAL SLOW IVP SCH (23:10)
[2023-04-23] MEDS: Pantoprazole 40 MG VIAL IVP SCH (23:13)
[2023-04-23] MEDS: Lactated Ringer's 1,000 ML IV SCH (23:21)
[2023-04-23] MEDS: Lantus 1000 UNITS/10 ML VIAL SC SCH (23:23)
[2023-04-23] MEDS: Scopolamine 1 mg/72 hour Patch TD SCH (23:24)
[2023-04-23 23:31] VITALS: BMI 20.9
[2023-04-24] MEDS: cefTRIAXone\\ROCEPHIN 2 GM in Sodium Chloride 0.9% 100 ML IVPB SCH ×2 (03:10→06:59)
[2023-04-24 03:32] LABS: #Monocytes 0.6 10x3/uL (0.0-1.1); %Basophils 0.4 % (0.0-2.0); %Lymphocytes 10.6 % (18.0-47.0); %Monocytes 5.7 % (0.0-10.0); %Neutrophils 82.8 % (40.0-75.0); Hematocrit 33.1 % (34.9-44.5); Hemoglobin 10.9 g/dL (12.0-15.5); Mean Corpuscular HGB CONC 32.9 g/dL (32.0-36.0); Mean Corpuscular Hemoglobin 27.6 pg (27.0-33.0); Mean Corpuscular Volume 83.8 fl (81.6-98.3); Mean Platelet Volume 9.4 fl (7.4-10.4); Platelet Count 412 10x3/uL (150-450); RBC Distribution Width 14.4 % (11.5-14.5); Red Blood Cell (RBC) Count 3.95 10x6/uL (3.90-5.03); White Blood Cell (WBC) Count 9.7 10x3/uL (3.5-10.5)
[2023-04-24 03:48] LABS: Anion Gap 17 mmol/L (10-20); BUN (Urea Nitrogen) 20 mg/dL (7.0-18.7); Calc. Creatinine Clearance 50 mL/min (70-130); Carbon Dioxide 16 mmol/L (22-29); Chloride 113 mmol/L (98-107); Estimated GFR 50; Glucose 221 mg/dL (70-105); Magnesium 1.8 mg/dL (1.6-2.6); Potassium 3.9 mmol/L (3.5-5.1); Sodium 142 mmol/L (136-145)
[2023-04-24] MEDS: Promethazine HCl 12.5 MG in Sodium Chloride 0.9% 50 ML IVPB PRN (03:50)
[2023-04-24 04:00] LABS: Troponin I 0.066 ng/mL (< 0.028)
[2023-04-24 04:01] LABS: Free T4 (Free Thyroxine) 0.89 ng/dL (0.70-1.48); Thyroid Stimulating Hormone 0.51 uIU/mL (0.35-4.94)
[2023-04-24] MEDS: HYDROcodone/Acetaminophen 5/325 mg Tablet PO PRN (04:24)
[2023-04-24] MEDS: Magnesium Sulfate/D5W 1 GM in Premix 1 BAG IVPB SCH (04:40)
[2023-04-24] MEDS: Magnesium Sulfate/D5W 1 GM/100 ML BAG IVPB SCH (04:57)
[2023-04-24] MEDS: HumaLOG 300 UNITS/3 ML VIAL SC SCH (05:51)
[2023-04-24] MEDS: Carvedilol 6.25 MG TAB PO SCH (05:52)
[2023-04-24] MEDS: Amlodipine 5 MG TAB PO SCH (06:58)
[2023-04-24] MEDS ORDERED: Amlodipine 5 MG TAB PO SCH (07:00)
[2023-04-24] MEDS: HumaLOG 300 UNITS/3 ML VIAL SC PRN (07:45)
[2023-04-24] MEDS ORDERED: Carvedilol 6.25 MG TAB PO SCH (08:00)
[2023-04-24] MEDS: Pantoprazole 40 MG VIAL IVP SCH (08:17)
[2023-04-24] MEDS: Carvedilol 12.5 MG TAB PO SCH (08:19)
[2023-04-24] MEDS ORDERED: HumaLOG 300 UNITS/3 ML VIAL SC PRN (10:18)
[2023-04-24] MEDS: Morphine 2 MG/ML VIAL SLOW IVP PRN (11:10)
[2023-04-24] MEDS: Dextrose 5% in Water 1,000 ML IV PRN (11:27)
[2023-04-24 11:32] LABS: Anion Gap 12 mmol/L (10-20); BUN (Urea Nitrogen) 20 mg/dL (7.0-18.7); Calc. Creatinine Clearance 50 mL/min (70-130); Calcium 8.4 mg/dL (7.8-10.44); Carbon Dioxide 18 mmol/L (22-29); Chloride 115 mmol/L (98-107); Estimated GFR 50; Potassium 3.6 mmol/L (3.5-5.1); Sodium 141 mmol/L (136-145)
[2023-04-24] MEDS: Glucagon 1 MG/ML KIT IM PRN (11:32)
[2023-04-24 11:37] LABS: Glucose 40 mg/dL (70-105)
[2023-04-24 12:53] LABS: Hemoglobin A1c 8.7 % (4.0-6.0)
[2023-04-24 22:32] LABS: Amphetamine Not Detected (NotDetected); Barbiturates Screen Not Detected (NotDetected); Benzodiazepine Screen Detected (NotDetected); Cocaine Metabolite Screen Not Detected (NotDetected); Methadone Not Detected (NotDetected); Methamphetamine Not Detected (NotDetected); Opiate Screen Detected (NotDetected); Oxycodone Screen Not Detected (NotDetected); Phencyclidine (PCP) Not Detected (NotDetected); THC/Cannabinoid Screen Detected (NotDetected); Tricyclic Screen Not Detected (NotDetected)
[2023-04-25 05:43] LABS: #Eosinphils 0.1 10x3/uL (0.0-0.5); #Monocytes 0.5 10x3/uL (0.0-1.1); %Basophils 0.4 % (0.0-2.0); %Eosinophils 0.7 % (0.0-6.0); %Lymphocytes 13.8 % (18.0-47.0); %Monocytes 4.9 % (0.0-10.0); %Neutrophils 79.8 % (40.0-75.0); Mean Corpuscular HGB CONC 32.4 g/dL (32.0-36.0); Mean Corpuscular Hemoglobin 27.3 pg (27.0-33.0); Mean Corpuscular Volume 84.4 fl (81.6-98.3); Mean Platelet Volume 9.7 fl (7.4-10.4); Platelet Count 383 10x3/uL (150-450); RBC Distribution Width 14.3 % (11.5-14.5); Red Blood Cell (RBC) Count 4.03 10x6/uL (3.90-5.03)
[2023-04-25 05:48] LABS: Anion Gap 14 mmol/L (10-20); BUN (Urea Nitrogen) 21 mg/dL (7.0-18.7); Calc. Creatinine Clearance 53 mL/min (70-130); Calcium 8.5 mg/dL (7.8-10.44); Carbon Dioxide 18 mmol/L (22-29); Chloride 110 mmol/L (98-107); Estimated GFR 53; Glucose 127 mg/dL (70-105); Potassium 3.9 mmol/L (3.5-5.1); Sodium 138 mmol/L (136-145)
[2023-04-25] MEDS ORDERED: Amlodipine 5 MG TAB PO SCH (09:00)
[2023-04-25] MEDS ORDERED: Metoprolol Tartrate 25 MG TAB PO SCH (09:00)
[2023-04-25] MEDS: Aspirin 81 mg Enteric Coated Tablet PO SCH (11:07)
[2023-04-26] MEDS ORDERED: HYDROcodone/Acetaminophen 5/325 mg Tablet PO PRN ×2 (07:46)
[2023-04-26] MEDS: Morphine 2 MG/ML VIAL SLOW IVP PRN (12:26)
[2023-04-26] MEDS: Sodium Chloride 0.9% 1,000 ML IV SCH (12:29)
[2023-04-26] MEDS: Pantoprazole 40 MG VIAL IVP SCH (20:36)
[2023-04-26] MEDS: Dextrose 10% in Water 1,000 ML IV SCH (20:50)
[2023-04-27] MEDS ORDERED: Sodium Chloride 0.9% 1,000 ML IV SCH (08:03)
[2023-04-28 02:17] VITALS: BP 164/72; TEMP 98.6
== END 2023-04-27 20:00 | disposition home or self-care (01) | DRG 690 ==
LOC: CSHERS 11:19 → CSHTELE 21:12
PROVIDERS: ADMIT Internal Medicine; ATTEND Internal Medicine
DX: N10 Acute pyelonephritis (principal); E87.20 Acidosis, unspecified; I48.91 Unspecified atrial fibrillation; Z88.8 Allergy status to other drugs, medicaments and biological substances; Z79.4 Long term (current) use of insulin; Z79.899 Other long term (current) drug therapy; Z79.82 Long term (current) use of aspirin; Z98.51 Tubal ligation status; Z89.511 Acquired absence of right leg below knee; Z89.422 Acquired absence of other left toe(s); I10 Essential (primary) hypertension; F17.210 Nicotine dependence, cigarettes, uncomplicated; I16.0 Hypertensive urgency; E86.0 Dehydration; E11.649 Type 2 diabetes mellitus with hypoglycemia without coma; F12.10 Cannabis abuse, uncomplicated
CPT/HCPCS: 36415; 36416; 70450; 71045; 74176; 80048; 80053; 80306; 81001; 82010; 83036; 83605; 83690; 83735; 84439; 84443; 84484; 85025; 87040; 87086; 93005; 93010; 93306; 96361; 96374; 96375; 96376; C9113; J0360; J0696; J1611; J1815; J1885; J2060; J2272; J2550; J3475; J3490; J7050; J7070; J7120

== ENCOUNTER 2024-03-06 11:02 | Emergency (ER) | payer OTHER ==
[2024-03-06] MEDS ORDERED: Aspirin 325 MG TAB ONE (11:30)
[2024-03-06] MEDS ORDERED: Acetaminophen 325 MG TAB ONE (12:17)
[2024-03-06 12:38] LABS: #Basophils 0.04 10x3/uL (0.0-0.2); #Monocytes 0.31 10x3/uL (0.0-1.1); #Neutrophils 5.41 10x3/uL (1.5-8.4); %Basophils 0.6 % (0.0-2.0); %Eosinophils 1.4 % (0.0-6.0); %Lymphocytes 15.4 % (18.0-47.0); %Monocytes 4.4 % (0.0-10.0); %Neutrophils 76.9 % (40.0-75.0); Hematocrit 36.4 % (34.9-44.5); Hemoglobin 11.4 g/dL (12.0-15.5); Mean Corpuscular HGB CONC 31.3 g/dL (32.0-36.0); Mean Corpuscular Hemoglobin 27.3 pg (27.0-33.0); Mean Corpuscular Volume 87.1 fL (81.6-98.3); Mean Platelet Volume 9.4 fL (7.4-10.4); Platelet Count 364 10x3/uL (150-450); Red Blood Cell (RBC) Count 4.18 10x6/uL (3.90-5.03)
[2024-03-06 12:42] LABS: ALT (SGPT) 14 U/L (8-55); AST (SGOT) 10 U/L (5-34); Albumin 3.1 g/dL (3.5-5.0); Alkaline Phosphatase 210 U/L (40-110); Anion Gap 14 mmol/L (10-20); BUN (Urea Nitrogen) 42 mg/dL (7.0-18.7); Bilirubin, Total 0.3 mg/dL (0.2-1.2); Calc. Creatinine Clearance 0 mL/min (70-130); Calcium 8.9 mg/dL (7.8-10.44); Carbon Dioxide 24 mmol/L (22-29); Chloride 99 mmol/L (98-107); Estimated GFR 16; Globulin 3.9 g/dL (2.4-3.5); Lipase 41 U/L (8-78); Magnesium 1.8 mg/dL (1.6-2.6); Sodium 133 mmol/L (136-145)
[2024-03-06] MEDS ORDERED: Labetalol HCl 100 MG/20 ML VIAL ONE (12:52)
[2024-03-06 13:00] LABS: Glucose 703 mg/dL (70-105)
[2024-03-06] MEDS ORDERED: Insulin Regular, Human 100 UNIT/ML 10 ML VIAL ONE (13:27)
== END 2024-03-06 14:48 | disposition home or self-care (01) ==
LOC: CSHERS 11:02
DX: R07.89 Other chest pain (principal); I12.0 Hypertensive chronic kidney disease with stage 5 chronic kidney disease or end stage renal disease; E11.22 Type 2 diabetes mellitus with diabetic chronic kidney disease; N18.6 End stage renal disease; F17.210 Nicotine dependence, cigarettes, uncomplicated; Z99.2 Dependence on renal dialysis; Z74.09 Other reduced mobility; Z89.612 Acquired absence of left leg above knee; Z89.511 Acquired absence of right leg below knee
CPT/HCPCS: 80053; 82010; 83690; 83735; 83880; 84100; 84484; 85025; 93005; 96374; 96375; J1815